=== PATIENT | female | born 1960 | race African-American/Black ===

== ENCOUNTER 2022-07-16 18:02 | Emergency (ER) | payer OTHER ==
[~2022-07-16] VITALS: Ht 162.6 cm; Wt 150.0 kg
[2022-07-16 18:54] LABS: BASOPHILS % 0.6 % (0.0-2.0); EOSINOPHILS % 2.8 % (0.0-5.0); HEMATOCRIT. 36.5 % (36.0-48.0); HEMOGLOBIN. 12.3 g/dL (12.0-16.0); MEAN CORPUSCULAR HEMOGLOBIN 31.4 pg (28.0-32.0); MEAN CORPUSCULAR VOLUME 93.4 fL (81.0-99.0); NEUTROPHILS % 52.6 % (40.0-76.0); PLATELET 303 x1000/uL (130-400); RED BLOOD CELL COUNT 3.91 mill/uL (4.2-5.4)
[2022-07-16 19:00] LABS: CHLORIDE 102 mEq/L (98-107)
[2022-07-16] MEDS ORDERED: ACETAMINOPHEN 325MG TABLET PO ONE (21:15)
[2022-07-16] MEDS ORDERED: SODIUM CHLORIDE 0.9% 1,000 ML IV ONE (21:15)
[2022-07-16] MEDS ORDERED: KETOROLAC 15MG/ML VIAL IV ONE (22:15)
[2022-07-16 22:56] LABS: CLARITY URINE CLEAR (CLEAR); COLOR URINE YELLOW (YELLOW); KETONES URINE TRACE (NEGATIVE); LEUKOCYTE ESTERASE URINE TRACE (NEGATIVE); NITRITE URINE NEGATIVE (NEGATIVE); OCCULT BLOOD URINE NEGATIVE (NEGATIVE); PROTEIN URINE NEGATIVE (NEGATIVE); SPECIFIC GRAVITY URINE 1.019 (1.005-1.030); UROBILINOGEN URINE 0.2 E.U./dL (0.2-1.0)
[2022-07-16] MEDS ORDERED: METOCLOPRAMIDE HCL 10MG/2ML VIAL IV ONE (23:00)
[2022-07-16] MEDS ORDERED: METO5TAB86 MT (23:38)
[2022-07-17 00:25] VITALS: BP 133/62
== END 2022-07-17 00:30 | disposition home or self-care (01) ==
LOC: ER 18:02
DX: R42 Dizziness and giddiness (principal); R51.9 Headache, unspecified; E11.9 Type 2 diabetes mellitus without complications; I10 Essential (primary) hypertension; Z68.43 Body mass index [BMI] 50.0-59.9, adult; Z86.011 Personal history of benign neoplasm of the brain; Z98.890 Other specified postprocedural states
CPT/HCPCS: 36415; 70450; 71045; 80053; 81003; 84484; 85025; 93971; 96361; 96374; 96375; 99285; J1885; J2765; J7030

== ENCOUNTER 2022-09-22 23:57 | Emergency (ER) | payer OTHER ==
[~2022-09-22] VITALS: Ht 170.2 cm; Wt 91.0 kg
[~2022-09-22 23:57] MED LIST: METO5TAB86 MT
[2022-09-23] MEDS ORDERED: MECLIZINE 12.5MG TABLET PO ONE (03:15)
[2022-09-23] MEDS ORDERED: SODIUM CHLORIDE 0.9% 1,000 ML IV ONE (03:15)
[2022-09-23 03:31] LABS: BASOPHILS % 0.8 % (0.0-2.0); EOSINOPHILS % 2.6 % (0.0-5.0); HEMATOCRIT. 35.5 % (36.0-48.0); HEMOGLOBIN. 11.6 g/dL (12.0-16.0); LYMPHOCYTES % 39.5 % (20.0-50.0); MEAN CORPUSCULAR HEMOGLOBIN 30.1 pg (28.0-32.0); MEAN CORPUSCULAR VOLUME 92.1 fL (81.0-99.0); MEAN PLATELET VOLUME 8.1 fl (7.4-10.4); MONOCYTES % 8.8 % (2.0-8.0); NEUTROPHILS % 48.3 % (40.0-76.0); PLATELET 346 x1000/uL (130-400); RED BLOOD CELL COUNT 3.85 mill/uL (4.2-5.4); RED CELL DISTRIBUTION WIDTH 13.9 % (11.6-14.6)
[2022-09-23 03:40] LABS: CHLORIDE 111 mEq/L (98-107)
[2022-09-23] MEDS ORDERED: KETOROLAC 15MG/ML VIAL IV ONE (04:00)
[2022-09-23] MEDS ORDERED: MORPHINE SULFATE 4 MG/ML CPJ (NOT FOR IM USE) IV ONE (05:45)
[2022-09-23 06:26] VITALS: BP 101/41
== END 2022-09-23 08:14 | disposition home or self-care (01) ==
LOC: ER 23:57
DX: R51.9 Headache, unspecified (principal); R53.1 Weakness; R42 Dizziness and giddiness; R11.0 Nausea
CPT/HCPCS: 36415; 70450; 71045; 80053; 82962; 83605; 84484; 85025; 96374; 96375; 99285; J1885; J2270; J7030; J8597; Z7610

== ENCOUNTER 2022-11-05 19:54 | Emergency (ER) | payer OTHER ==
[~2022-11-05] VITALS: Ht 167.6 cm; Wt 130.0 kg
[2022-11-05 19:59] VITALS: BP 109/50
== END 2022-11-05 20:40 | disposition left against medical advice (07) ==
LOC: ER 19:54
DX: R10.9 Unspecified abdominal pain (principal); Z53.21 Procedure and treatment not carried out due to patient leaving prior to being seen by health care provider
CPT/HCPCS: 99281

== ENCOUNTER 2023-10-13 23:01 | Emergency (ER) | payer OTHER ==
[~2023-10-13] VITALS: Ht 170.2 cm; Wt 100.0 kg
[2023-10-13 23:07] VITALS: O2SAT 100
[2023-10-14 00:09] LABS: BASOPHILS % 0.9 % (0.0-2.0); HEMATOCRIT. 35.8 % (36.0-48.0); HEMOGLOBIN. 11.8 g/dL (12.0-16.0); LYMPHOCYTES % 45.7 % (20.0-50.0); MEAN CORPUSCULAR HEMOGLOBIN 30.7 pg (28.0-32.0); MEAN CORPUSCULAR HGB CONC 32.8 g/dL (31.0-37.0); MEAN CORPUSCULAR VOLUME 93.5 fL (81.0-99.0); MONOCYTES % 6.8 % (2.0-8.0); NEUTROPHILS % 44.6 % (40.0-76.0); PLATELET 301 x1000/uL (130-400); RED BLOOD CELL COUNT 3.83 mill/uL (4.2-5.4); WHITE BLOOD COUNT 4.2 x1000/uL (4.5-11.0)
[2023-10-14 00:52] LABS: ALANINE AMINOTRANSFERASE 56 IU/L (10-49); ALBUMIN 4.4 g/dL (3.2-4.8); ASPARTATE AMINOTRANSFERASE 76 IU/L (<34); BILIRUBIN TOTAL 0.5 mg/dL (0.1-1.0); CALCIUM 9.4 mg/dL (8.7-10.4); CARBON DIOXIDE 23 mEq/L (21-32); CHLORIDE 104 mEq/L (98-107); CREATININE 1.1 mg/dL (0.6-1.0); GLUCOSE 87 mg/dL (70-105); POTASSIUM 3.9 mEq/L (3.5-5.1); PROTEIN TOTAL 7.6 g/dL (6.0-8.3); SODIUM 135 mEq/L (136-145); UREA NITROGEN BLOOD 9 mg/dL (9-23)
[2023-10-14 00:55] LABS: TROPONIN I HIGH SENSITIVITY < 4 ng/L (3.0-34)
[2023-10-14 02:47] LABS: TROPONIN I HIGH SENSITIVITY < 4 ng/L (3.0-34)
[2023-10-14 05:04] VITALS: BP 133/87; PULSE 89; RESP 18; TEMP 97.6
== END 2023-10-14 05:02 | disposition home or self-care (01) ==
LOC: ER 23:01
DX: R07.9 Chest pain, unspecified (principal); E11.9 Type 2 diabetes mellitus without complications; Z91.018 Allergy to other foods; Z88.8 Allergy status to other drugs, medicaments and biological substances
CPT/HCPCS: 36415; 71045; 80053; 84484; 85025; 85379; 99284

== ENCOUNTER 2024-04-14 17:12 | Emergency (ER) | payer OTHER ==
[~2024-04-14] VITALS: Ht 162.6 cm; Wt 100.0 kg
[2024-04-14 17:18] VITALS: O2SAT 100
[2024-04-14] MEDS: MORPHINE SULFATE 4 MG/ML INJ (FOR IV/IM USE) IV STA (17:21)
[2024-04-14] MEDS: ONDANSETRON HCL 4MG/2ML INJ IV STA (17:21)
[2024-04-14 18:25] LABS: BASOPHILS % 1.1 % (0.0-2.0); EOSINOPHILS % 2.2 % (0.0-5.0); HEMATOCRIT. 34.2 % (36.0-48.0); HEMOGLOBIN. 11.5 g/dL (12.0-16.0); LYMPHOCYTES % 47.7 % (20.0-50.0); MEAN CORPUSCULAR HEMOGLOBIN 30.7 pg (28.0-32.0); MEAN CORPUSCULAR HGB CONC 33.6 g/dL (31.0-37.0); MEAN CORPUSCULAR VOLUME 91.5 fL (81.0-99.0); MEAN PLATELET VOLUME 7.8 fl (7.4-10.4); MONOCYTES % 8.7 % (2.0-8.0); NEUTROPHILS % 40.3 % (40.0-76.0); PLATELET 266 x1000/uL (130-400); RED BLOOD CELL COUNT 3.74 mill/uL (4.2-5.4); RED CELL DISTRIBUTION WIDTH 14.1 % (11.6-14.6); WHITE BLOOD COUNT 3.3 x1000/uL (4.5-11.0)
[2024-04-14 18:27] LABS: CHLORIDE 106 mEq/L (98-107); POTASSIUM 3.7 mEq/L (3.5-5.1); SODIUM 139 mEq/L (136-145)
[2024-04-14 18:28] LABS: CALCIUM 10.2 mg/dL (8.7-10.4); CARBON DIOXIDE 27 mEq/L (21-32)
[2024-04-14] MEDS: SODIUM CHLORIDE 0.9% 1,000 ML IV ONE (18:29)
[2024-04-14 18:33] LABS: GLUCOSE 69 mg/dL (70-105); UREA NITROGEN BLOOD 13 mg/dL (9-23)
[2024-04-14 18:34] LABS: CREATININE 1.5 mg/dL (0.6-1.0); ETHANOL BLOOD < 10 mg/dL (<10); PROTHROMBIN TIME 11.6 sec (9.6-11.0); TROPONIN I HIGH SENSITIVITY < 4 ng/L (3.0-34)
[2024-04-14 18:35] LABS: ALANINE AMINOTRANSFERASE 32 IU/L (10-49); ALBUMIN 4.4 g/dL (3.2-4.8); ASPARTATE AMINOTRANSFERASE 41 IU/L (<34); BILIRUBIN DIRECT 0.2 mg/dL (<=3.0); BILIRUBIN TOTAL 0.6 mg/dL (0.1-1.0); PROTEIN TOTAL 7.6 g/dL (6.0-8.3)
[2024-04-14] MEDS: ACETAMINOPHEN 1000MG/100ML 100 ML IV ONE (19:15)
[2024-04-14] MEDS: HYDROCODONE/ACETAMINOPHEN 5/325MG TABLET PO NR (20:59)
[2024-04-14] MEDS: KETOROLAC 30MG/ML VIAL IM NR (21:45)
[2024-04-14 23:00] VITALS: TEMP 37.22520
[2024-04-14 23:12] LABS: TROPONIN I HIGH SENSITIVITY < 4 ng/L (3.0-34)
[2024-04-15 00:24] LABS: CLARITY URINE CLEAR (CLEAR); COLOR URINE YELLOW (YELLOW); GLUCOSE URINE NEGATIVE (NEGATIVE); KETONES URINE TRACE (NEGATIVE); LEUKOCYTE ESTERASE URINE 2+ (NEGATIVE); NITRITE URINE NEGATIVE (NEGATIVE); OCCULT BLOOD URINE NEGATIVE (NEGATIVE); PROTEIN URINE TRACE (NEGATIVE); SPECIFIC GRAVITY URINE 1.028 (1.005-1.030); UROBILINOGEN URINE 0.2 E.U./dL (0.2-1.0)
[2024-04-15 00:35] LABS: *AMPHETAMINES SCREEN URINE NEGATIVE (NEGATIVE)
[2024-04-15 00:36] LABS: *BARBITURATES SCREEN URINE NEGATIVE (NEGATIVE); *BENZODIAZEPINES SCREEN URINE NEGATIVE (NEGATIVE); *COCAINE SCREEN URINE NEGATIVE (NEGATIVE); CANNABINOID URINE SCREEN NEGATIVE (NEGATIVE); ECSTASY MDMA SCREEN URINE CONF.TEST INDICATED (NEGATIVE); METHADONE URINE SCREEN NEGATIVE (NEGATIVE); OPIATES URINE SCREEN PRESUMPTIVE POSITIVE (NEGATIVE); PHENCYCLIDINE URINE SCREEN NEGATIVE (NEGATIVE)
[2024-04-15] MEDS ORDERED: CEPH500T MT (00:50)
[2024-04-15 01:20] LABS: RBC URINE 0-2 /hpf (0-2); SQUAMOUS EPITHELIAL CELL URINE FEW /lpf (RARE/1+)
[2024-04-15 01:21] LABS: BACTERIA URINE TRACE
[2024-04-15] MEDS: PHENAZOPYRIDINE HCL 100MG TABLET PO NR (01:45)
[2024-04-15] MEDS: CEPHALEXIN 250MG CAPSULE PO NR (01:45)
[2024-04-15 02:50] VITALS: BP 123/67; PULSE 62; RESP 15; O2SAT 100
== END 2024-04-15 03:00 | disposition home or self-care (01) ==
LOC: ER 17:12
DX: N39.0 Urinary tract infection, site not specified (principal); R07.89 Other chest pain; E11.9 Type 2 diabetes mellitus without complications; Z88.8 Allergy status to other drugs, medicaments and biological substances; Z88.1 Allergy status to other antibiotic agents
CPT/HCPCS: 80076; 80305; 80048; 81003; 80320; 83690; 85025; 85610; 84484; 36415; 71045; 74176; 93005; 96361; 96374; 96375; 99285; J1885; J2405; J2270; J7030; Z7610 ×3; G0480; J0131

== ENCOUNTER 2025-03-18 13:54 | Inpatient (IN) | payer OTHER ==
[~2025-03-18] VITALS: Ht 165.1 cm; Wt 124.3 kg
[~2025-03-18 13:54] MED LIST changes: +CEPH500T MT
[2025-03-18 13:57] VITALS: O2SAT 98
[2025-03-18 14:26] LABS: BASOPHILS % 0.7 % (0.0-2.0); EOSINOPHILS % 3.4 % (0.0-5.0); HEMATOCRIT. 35.7 % (36.0-48.0); HEMOGLOBIN. 11.6 g/dL (12.0-16.0); LYMPHOCYTES % 47.3 % (20.0-50.0); MEAN PLATELET VOLUME 6.6 fl (7.4-10.4); MONOCYTES % 7.8 % (2.0-8.0); NEUTROPHILS % 40.8 % (40.0-76.0); PLATELET 276 x1000/uL (130-400); RED BLOOD CELL COUNT 3.83 mill/uL (4.2-5.4); RED CELL DISTRIBUTION WIDTH 13.4 % (11.6-14.6)
[2025-03-18 14:39] LABS: CREATININE 1.1 mg/dL (0.6-1.0)
[2025-03-18 14:40] LABS: UREA NITROGEN BLOOD 15 mg/dL (9-23)
[2025-03-18 14:41] LABS: ASPARTATE AMINOTRANSFERASE 24 IU/L (<34)
[2025-03-18 14:42] LABS: BILIRUBIN DIRECT 0.2 mg/dL (<=3.0); BILIRUBIN TOTAL 0.6 mg/dL (0.1-1.0); PROTEIN TOTAL 7.9 g/dL (6.0-8.3); TROPONIN I HIGH SENSITIVITY < 4 ng/L (3.0-34)
[2025-03-18 15:12] LABS: INR 1.0
[2025-03-18] MEDS: IOHEXOL-350 100 ML BOTTLE ONE ×2 (16:24→23:59)
[2025-03-18] MEDS: ASPIRIN 81MG TABLET PO ONE (16:29)
[2025-03-18 18:00] VITALS: BP 116/66; PULSE 76; RESP 19; TEMP 36.974
[2025-03-18 20:00] VITALS: BP 110/68; PULSE 72; RESP 16; TEMP 37.1; O2SAT 100
[2025-03-18] MEDS ORDERED: DEXTROSE 50% WATER 50ML SYRINGE IV PRN (22:00)
[2025-03-18] MEDS ORDERED: CLONIDINE 0.1MG TABLET PO PRN (22:00)
[2025-03-18] MEDS: ONDANSETRON HCL 4MG/2ML INJ IV PRN (22:56)
[2025-03-18] MEDS: OXYCODONE HCL/ACETAMINOPHEN 5/325MG TABLET PO PRN (22:56)
[2025-03-19] VITALS: BP 100/49; PULSE 74; RESP 17; TEMP 36.7; O2SAT 100
[2025-03-19 04:00] VITALS: BP 106/63; PULSE 62; RESP 16; TEMP 36.9; O2SAT 100
[2025-03-19] MEDS: BLOOD SUGAR DIAGNOSTIC STRIP TEST SCH (06:49)
[2025-03-19] MEDS: INSULIN LISPRO 100 UNITS/ML SUBCUT SCH (06:50)
[2025-03-19 08:00] VITALS: BP 86/41; PULSE 64; RESP 18; TEMP 36.6; O2SAT 100
[2025-03-19 09:30] LABS: LDL CHOLESTEROL 107.0 mg/dL (5-100); TRIGLYCERIDE 131.0 mg/dL (0-150)
[2025-03-19] MEDS: ASPIRIN 81MG TABLET PO SCH (10:33)
[2025-03-19] MEDS: ATORVASTATIN CALCIUM 40MG TABLET PO SCH (10:34)
[2025-03-19 12:00] VITALS: BP 88/43; PULSE 61; RESP 15; TEMP 36.5; O2SAT 100
[2025-03-19] MEDS ORDERED: BENZONATATE 100MG CAPSULE PO PRN (12:00)
[2025-03-19 16:00] VITALS: BP 97/49; PULSE 60; RESP 18; TEMP 36.4; O2SAT 100
[2025-03-19] MEDS: ACETAMINOPHEN 325MG TABLET PO PRN (17:00)
[2025-03-19 20:00] VITALS: BP 90/50; PULSE 61; RESP 16; TEMP 36.1; O2SAT 97
[2025-03-20] MEDS: HYDROCODONE/ACETAMINOPHEN 5/325MG TABLET PO PRN (00:05)
[2025-03-20] MEDS: TRAZODONE HCL 50MG TABLET PO PRN (01:54)
[2025-03-20 08:00] VITALS: BP 93/39; PULSE 63; RESP 18; TEMP 36.4; O2SAT 99
[2025-03-20 08:15] LABS: BASOPHILS % 0.8 % (0.0-2.0); EOSINOPHILS % 4.9 % (0.0-5.0); HEMATOCRIT. 34.7 % (36.0-48.0); HEMOGLOBIN. 11.3 g/dL (12.0-16.0); LYMPHOCYTES % 55.0 % (20.0-50.0); MEAN PLATELET VOLUME 6.9 fl (7.4-10.4); MONOCYTES % 10.3 % (2.0-8.0); NEUTROPHILS % 29.0 % (40.0-76.0); PLATELET 268 x1000/uL (130-400); RED BLOOD CELL COUNT 3.74 mill/uL (4.2-5.4); RED CELL DISTRIBUTION WIDTH 13.4 % (11.6-14.6)
[2025-03-20 08:28] LABS: CREATININE 1.2 mg/dL (0.6-1.0); UREA NITROGEN BLOOD 15.0 mg/dL (9-23)
[2025-03-20] MEDS: CLOPIDOGREL 75MG TABLET PO SCH (09:57)
[2025-03-20] MEDS: DULOXETINE HCL 20MG DR CAPSULE PO SCH (09:57)
[2025-03-20 12:00] VITALS: BP 111/57; PULSE 60; RESP 18; TEMP 36.3; O2SAT 99
[2025-03-20 16:00] VITALS: BP 97/54; PULSE 63; RESP 18; TEMP 36.4; O2SAT 100
[2025-03-20 20:00] VITALS: BP 105/53; PULSE 81; RESP 17; TEMP 36.2; O2SAT 97
[2025-03-20] MEDS ORDERED: *PATIENT'S OWN MEDICATION STORAGE XX SCH (22:00)
[2025-03-21] VITALS: BP 92/53; PULSE 62; RESP 17; TEMP 37; O2SAT 98
[2025-03-21 08:00] VITALS: BP 101/60; PULSE 62; RESP 16; TEMP 36.3; O2SAT 98
[2025-03-21] MEDS ORDERED: LIP40 PO (10:21)
[2025-03-21] MEDS ORDERED: ASPI-1160 PO (10:21)
[2025-03-21 12:00] VITALS: BP 107/61; PULSE 65; RESP 18; TEMP 36.4; O2SAT 98
[2025-03-21 16:00] VITALS: BP 110/65; PULSE 64; RESP 19; TEMP 36.6; O2SAT 98
[2025-03-21 20:00] VITALS: BP 100/58; PULSE 72; RESP 17; TEMP 36.1; O2SAT 97
[2025-03-21 20:52] VITALS: BP 100/58; PULSE 72; RESP 18; TEMP 97
== END 2025-03-21 22:16 | disposition short-term general hospital (02) | DRG 69 ==
LOC: ER 13:54 → 5WST 16:19 → EDBEDREQ 16:20 → EDBEDREQTM 16:20 → ENRESERV 16:41 → 7EST 03-21 06:08
PROVIDERS: ADMIT Internal Medicine; ATTEND Internal Medicine
DX: G45.9 Transient cerebral ischemic attack, unspecified (principal); K51.90 Ulcerative colitis, unspecified, without complications; D64.9 Anemia, unspecified; E11.22 Type 2 diabetes mellitus with diabetic chronic kidney disease; N18.9 Chronic kidney disease, unspecified; D32.9 Benign neoplasm of meninges, unspecified; G93.89 Other specified disorders of brain; H53.2 Diplopia; I67.1 Cerebral aneurysm, nonruptured; R05.9 Cough, unspecified; Z88.1 Allergy status to other antibiotic agents; Z93.2 Ileostomy status; Z85.038 Personal history of other malignant neoplasm of large intestine; Z82.49 Family history of ischemic heart disease and other diseases of the circulatory system; Z79.82 Long term (current) use of aspirin
CPT/HCPCS: 36415; 70496; 70498; 70551; 71045; 80048; 80061; 80076; 82962; 83036; 84484; 85025; 93005; 97116; 97162; 97166; 99291; A4606; J2405; Q9967